=== PATIENT | female | born 1970 | race Two or more races ===

== ENCOUNTER 2016-06-21 19:14 | Emergency (ER) | payer MEDICAID ==
[2016-06-21] MEDS ORDERED: ONDANSETRON 4 MG/2ML 2 ML VIAL ONE ×2 (19:43→20:41)
[2016-06-21] MEDS ORDERED: LACTATED RINGERS 1,000 ML ONE (19:43)
[2016-06-21 19:57] LABS: ABSOLUTE NEUTROPHIL COUNT 9.5 K/mm3 (1.8-7.7); BASO % 0.2 % (0.2-1.0); EOS % 0.1 % (0.9-2.9); HEMATOCRIT 42.4 % (37.0-47.0); IMM NEUT # 0.1 K/mm3 (0-0.2); IMM NEUT% 0.5 % (0-1); LYMPH # 0.8 (1.0-4.8); LYMPH % 7.1 % (15-45); MEAN CORPUSCULAR HEMOGLOBIN 29.7 pg (27.0-31.0); MONO # 0.6 (0.0-0.8); NEUT % 87.1 % (43-75); PLATELET COUNT 288 K/mm3 (130-400); RED CELL DISTRIBUTION WIDTH 13.7 % (11.5-14.5)
[2016-06-21 20:16] LABS: ALB/GLOB RATIO 1.2 (>1.0); ALBUMIN 4.7 gm/dL (3.5-5.7); CALCIUM 9.1 mg/dL (8.6-10.3)
[2016-06-21] MEDS ORDERED: DICYCLOMINE HCL 10 MG CAPSULE ONE (20:41)
== END 2016-06-21 21:43 | disposition home or self-care (01) ==
LOC: ED 19:14
DX: A08.4 Viral intestinal infection, unspecified (principal); J45.909 Unspecified asthma, uncomplicated
CPT/HCPCS: 83690; 85025; 80053; 96375; 99283 ×2; 96374; 96361 ×2; A9270; J2405 ×2; J7120